=== PATIENT | female | born 2005 | race Caucasian/White ===

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

== ENCOUNTER 2025-04-02 12:23 | Outpatient (CLI) | payer OTHER, SELFPAY ==
--- OUTSIDE RECORDS SUMMARY | 2025-04-02 12:28 | XMS_ITS | Clinical Summary ---
Author Organization [facility] [address] Address [address] [place] [address] Phone Care Team Providers Care Culinary Specialist Name Role Phone No, Physician Primary Care Provider [phone] Allergies Active Allergy Reactions Criticality Noted Date [...] patient. Assessment & Plan (08/13/2023 4:46 PM DEVELOPMENT ADMINISTRATOR): Needs pelvic exam, but wanting to defer today. RTO in 4 weeks for FU and exam. Night terrors 09/06/2010 Overview (08/13/2023): Night terrors on/off throughout childhood; confirmed by prior foster parents and mother. Per mother, follow-up with management aide. Night terrors on/off throughout childhood; confirmed by prior foster parents and mother. Per mother, follow-up with management aide. Estimated Date of Delivery Comme nts Yes 01/27/2025 Based on last me nstrual period of 04/22/2024 (Exact Date) Resolved Problems Problem Noted Date Diagnosed Date Resolved Date Dysmenorrhea 08/13/2023 06/22/2024 Assessment & Plan (08/13/2023 4:44 PM DEVELOPMENT ADMINISTRATOR): Discussed scheduled motrin and tylenol with cramps. Irregular bleeding 08/13/2023 Assessment & Plan (08/13/2023 4:46 PM DEVELOPMENT ADMINISTRATOR): Check labs Discuss treatment for heavy and [...] on file Legal Sex Female 7:22 PM DEVELOPMENT ADMINISTRATOR Gender Identity Not on file Sexual Orientation [...] Estimated Date of Delivery 06/22/2024 - Present (04/02/2025) 01/27/2025 (set by Amena Lim, on 06/22/2024 based on Last Menstrual Period on 04/22/2024 (Exact Date)) Dating Summary Based On ROBIN GA Diff Last Menstrual Period on 04/22/2024 (Exact Date) 01/27/2025 Working Ultrasound on 06/22/2024 Alternate ROBIN Entry 01/25/2025 +2d Comment:Date entered prior t o episode creation Vitals Pregravid Weight Height TWG (As of 04/02/2025) Pregrav id BMI 153.7 cm (5' 0.5) Notes Progress Notes - Initial Pre kaylene [...] A5 1 Current 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 Review of Systems Constitutional: Positive for malaise/fatigue. Negative for chills and fever. HENT: Negative for hearing loss. Respiratory: Negative for cough. Cardiovascular: Negative for chest pain and palpitations. Gastrointestinal: Positive for constipation. Genitourinary: Negative for dysuria. Skin: Negative for rash. Neurological: Negative for headaches. Psychiatric/Behavioral: The patient is nervous/anxious. Objective: BP 112/56 Ht 153.7 cm (5' 0.5) Wt 107 lb 12.8 oz LMP 04/22/2024 [...] 06/22/2024 Growth Chart Information Age Height Weight Aijxsi-awq-eodh th Percentile BMI Percentile Head Circum Head Circum Percentile Date 18 years 153.7 cm (5' 0.5) 48.9 kg (107 lb 12.8 oz) 39.27%* 2023 18 years 153.7 cm (5' 0.5) 47.2 kg (104 lb) 32.20%* 2022 16 years 43.1 kg (95 lb) 2021 13 years 153.7 cm (5' 0.5) 38.1 kg (84 lb) 12.71%* 2017 12 years 35.8 kg (79 lb) 2017 12 years 34.5 kg (76 lb) 2017 12 years 33.6 kg (74 lb) 2017 12 years 32.7 kg (72 lb) 2016 11 years 141.6 cm (4' 7.75) 30.8 kg (68 lb) 11.80%* 2016 * [facility] (Girls, 2-20 Years) Last Filed Vital Signs Vital Sign Reading Time Taken Comments Blood Pressure 112/56 06/22/2024 10:08 AM CDT Pulse 84 09/10/2021 11:24 AM DEVELOPMENT ADMINISTRATOR Temperature 37.1 C (98.7 F) 09/09/2021 4:33 PM DEVELOPMENT ADMINISTRATOR Respiratory Rate 14 09/10/2021 11:2 4 AM DEVELOPMENT ADMINISTRATOR Oxygen Saturation 99% 09/10/2021 11: 24 AM DEVELOPMENT ADMINISTRATOR Inhaled Oxygen Concentration - - Weight 48.9 kg (107 lb 12.8 oz) 024 10:08 AM CDT Height 153.7 cm (5' 0.5) 06/22/2024 10 :08 AM CDT Body Mass Index 20.71 06/22/2024 10:08 AM CDT Body Mass Index Percentile 39.27% 06/22 10:08 AM CDT Growth Chart: [facility] (Girls, 2- 20 Years) Plan of Treatment Health Maintenance Due Date Last Done Comments HPV Vaccines (3 - 3-dose series) 06/02/2023 03/10/20 23, 01/14/2022 Regular Well Visit/Exam 18-64 2023 Meningococcal B Vaccine (2 o f 2 - Bexsero SCDM 2-dose series) 11/23/2023 05/24/2023 Covid-19 Vaccine (3 - 2023-2 5 season) 2024 01/11/2023, 12/01/2022 Depression Screening 08/13/2024 08/13/2023 Influenza Vaccine (#1) 2025 2, 07/31/2014, 07/31/2014, Additional history exists Chlamydia and Gonorrhea (GC/ CT) Screening 06/22/2025 [...] AM CDT) C. trachomatis Not Detected [facility] Comment:Testing performed by : [facility], [address] [place] [address]., [id number] N. gonorrhoeae Not Detected [facility] Comment: Interpretive Data This assay detects Chlamydia trachomatis and Neisseria gonorrhoeae by nucleic acid amplification testing (NAAT). This assay has been cleared by the [place] Food and Drug administration. The performance characteristics of this test have been verified by the [facility] Molecular Infectious Disease laboratory. The performance characteristics of this test have not been evaluated in individuals less than 14 years of age. Current Interpretive Data was last revised on 2023. Testing performed by: [facility], [address] [place] [address]., [id number] Endocervical 06/22/2024 11:5 0 AM CDT 06/23/2024 10:59 AM CDT Amena Lim DO LAB MICROBIOLOGY - GENE RAL ORDERABLES Final Result [facility] [id number] [address] Department of Laboratories [place], [place] [id number] [facility] * Hepatitis C antibody Blood (06/22/2024 [...] revised on 2019. Testing performed by: [facility], [address] [place] [address]., [id number] Blood 06/22/2024 11:0 1 AM CDT 06/22/2024 6:28 PM CDT Amena Lim DO LAB MICROBIOLOGY - GENE RAL ORDERABLES Final Result [facility] [address] Department [place] [address] from Last 3 Months or Most Recently Relevant to Health Maintenance Insurance [facility] CHOICE PLUS Care Teams Culinary Specialist Relationship Specialty Start Date End Date No, Physician PCP - General 09/09/21
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
== END 2025-04-02 12:24 | disposition home or self-care (01) ==
LOC: CHSIMG 12:25
PROVIDERS: PCP Registered Nurse; Visit Provider Registered Nurse
DX: R10.31 Right lower quadrant pain (principal)
CPT/HCPCS: 99199